=== PATIENT | male | born 1970 | race Caucasian/White ===

== ENCOUNTER 2020-02-05 14:21 | Inpatient (IN) | payer OTHER ==
[~2020-02-05] VITALS: Ht 152.4 cm; Wt 131.2 kg
[2020-02-05 14:22] VITALS: BP 123/56
[2020-02-05] MEDS ORDERED: ZESTRIL5 MG PO (14:32)
[2020-02-05] MEDS ORDERED: AMANTADINE 100100 M1 PO (14:32)
[2020-02-05] MEDS ORDERED: POTASSIUM20 PO (14:32)
[2020-02-05] MEDS ORDERED: OMEPRAZOLE40 MG PO (14:32)
[2020-02-05] MEDS ORDERED: MULTI COMPLETE1 EAC1 PO (14:33)
[2020-02-05] MEDS ORDERED: SPIRIVA18 MCG INH (14:33)
[2020-02-05] MEDS ORDERED: FAMOTIDINE20 MG PO (14:34)
[2020-02-05] MEDS ORDERED: DULOXETINE HCL60 MG PO (14:34)
[2020-02-05] MEDS ORDERED: DEPAKOTE500 MG PO (14:34)
[2020-02-05] MEDS ORDERED: FUROSEMIDE 40 M40 MG PO (14:34)
[2020-02-05] MEDS ORDERED: MIRALAX17 GM PO (14:35)
[2020-02-05] MEDS ORDERED: GABAPENTIN100 MG PO (14:35)
[2020-02-05] MEDS ORDERED: METFORMIN HCL850 MG PO (14:35)
[2020-02-05 14:56] LABS: HEMATOCRIT 38.9 % (42.0-52.0); MCHC 33.4 g/dL (28.0-37.0); MCV 89.9 fL (80.0-100.0); PLATELET COUNT 130 thou/uL (150-400); RBC 4.33 mil/uL (4.50-6.00); RDW 16.8 % (10.5-14.5); WBC 4.9 thou/uL (4.0-11.0)
[2020-02-05 15:07] LABS: CALCIUM 8.5 mg/dL (8.5-10.1); CREATININE 1.1 mg/dL (0.7-1.3)
[2020-02-05 15:09] LABS: POTASSIUM 2.9 mmol/L (3.5-5.1)
[2020-02-05 15:13] LABS: ALBUMIN 3.3 g/dL (3.4-5.0); TOTAL BILIRUBIN 0.6 mg/dL (0.2-1.0)
[2020-02-05] MEDS ORDERED: STOOL SOFTENER1 EAC2 PO (15:18)
[2020-02-05] MEDS ORDERED: ASA81BEC PO (15:18)
[2020-02-05] MEDS ORDERED: BUSPIRONE HCL10 MG PO (15:18)
[2020-02-05] MEDS ORDERED: MEDROXYPROGESTER5 MG PO (15:18)
[2020-02-05] MEDS ORDERED: OLANZAPINE20 MG PO (15:19)
[2020-02-05] MEDS ORDERED: AMBIEN 5 MG TABL5 M1 PO (15:19)
[2020-02-05] MEDS ORDERED: DEPAKOTE250 MG PO (15:19)
[2020-02-05] MEDS ORDERED: LIPITOR 40 MG T40 M1 PO (15:19)
[2020-02-05] MEDS ORDERED: BANOPHEN50 MG PO (15:20)
[2020-02-05] MEDS ORDERED: SOMA350 MG PO (15:20)
[2020-02-05] MEDS ORDERED: VOLTAREN GEL 1100 G1 TOP (15:21)
[2020-02-05] MEDS ORDERED: TIROSINT150 MCG PO (15:21)
[2020-02-05] MEDS ORDERED: NOVOLOG100 UNIT/M SUBQ (15:22)
[2020-02-05] MEDS ORDERED: LANTUS SUBQ ×2 (15:22)
--- NOTE | 2020-02-05 15:24 | NUR ---
EMILY ADORNO, GUARDIAN, CONTACTED AT THIS TIME. NO ANSWER ON PHONE. MESSAGE IS LEFT TO CALL ER BACK.
[2020-02-05 15:43] LABS: ANISOCYTOSIS 2+; ATYPICAL LYMPHS 1 %; LARGE PLATELETS RARE
[2020-02-05 16:39] VITALS: BP 144/70
[2020-02-05 17:09] LABS: URINE BILIRUBIN NEGATIVE (Negative); URINE BLOOD NEGATIVE (Negative); URINE CLARITY CLEAR; URINE COLOR YELLOW; URINE GLUCOSE-RANDOM* 1+ (Negative); URINE KETONES NEGATIVE (Negative); URINE LEUKOCYTES-REFLEX NEGATIVE (Negative); URINE NITRITE-REFLEX NEGATIVE (Negative); URINE PROTEIN (DIPSTICK) NEGATIVE (Negative); URINE SPECIFIC GRAVITY >= 1.030 (1.005-1.035); URINE UROBILINOGEN 0.2 E.U./dl (0.2-1.0)
[2020-02-05 17:17] LABS: AMP/METHAMP Negative (Negative); BARBITURATES Negative (Negative); BENZODIAZEPINES Negative (Negative); COCAINE Negative (Negative); METHADONE Negative (Negative); OPIATES Negative (Negative); PCP Negative (Negative)
[2020-02-05 17:25] VITALS: BP 141/82
[2020-02-05 18:25] LABS: ALBUMIN 3.3 g/dL (3.4-5.0); TOTAL PROTEIN 8.1 g/dL (6.4-8.2)
[2020-02-05 18:26] VITALS: BP 128/55
[2020-02-05] MEDS ORDERED: TRAZODONE HCL50 MG PO (18:28)
[2020-02-05] MEDS ORDERED: LACTULOSE PO (18:30)
[2020-02-05 18:39] LABS: TSH 3.86 uIU/mL (0.358-3.740)
[2020-02-05 19:41] VITALS: BP 105/54
--- NOTE | 2020-02-05 20:00 | NUR ---
PATIENT ARRIVED TO UNIT AT APPROXIMATELY 1800. ALERT AND ORIENTED TO PERSON PLACE AND SITUATION. ON 2LNC AND O2 SAT STABLE. NO DISTRESS NOTED UPON ARRIVAL TO UNIT. CALL LIGHT WITHIN REACH, SIDE RAILS UPX3. INSTRUCTED PATIENT ON USE OF CALL LIGHT AND ORIENTED PATIENT TO ROOM. STATES UNDERSTANDING. VSS.
--- NOTE | 2020-02-05 23:37 | NUR ---
PT RESTING IN BED. GOOD EYE CONTACT, MUMBLED SPEECH. PT ABLE TO TURN SELF IN BED, AND PULL SELF UP IN BED. LUNGS COARSE O2 PER NC 2L, LOOSE COUGH. PT REQUESTED SNACK AND PROVIDED. PT OX3 NOT TIME. CHILDLIKE. BLE REDDENED AND EDEMA. ALARM ON.
[2020-02-06 04:40] VITALS: BP 115/54
--- NOTE | 2020-02-06 06:55 | NUR ---
KAVITHA NASAL SWAB DONE THIS AM.
[2020-02-06 07:56] VITALS: BP 95/49
--- NOTE | 2020-02-06 10:47 | EKG ---
[facility] [place] [address] ELECTROCARDIOGRAM REPORT Name: PAT ROMERO Room #: 352-P ADM IN M.R.#: [id number] Admission: 02/05/20 Attend Phys: Leonel Rincon MD Discharge: Date of : 70 Report #: [id number] THIS REPORT FOR: cc: Minh Zhou,Minh Sparrow,Nikita Boswell MD ~ THIS REPORT FOR: //name// [facility] ED Test Date: 2020-02-05 Test Time: 16:04:03 Pat Name: PAT ROMERO Department: Patient ID: [id number]- Room: Gender: M Deployment Manager: : 1970 Requested By: Jessica Millan Order Number: [id number] MD: Nikita Agee Measurements Intervals [place] Rate: 102 P: 35 [place]: 74 QRS: 75 QRSD: 103 T: -55 QT: 322 QTc: 420 Interpretive Statements Sinus tachycardia RSR' in V1 or V2, right VCD or RVH Nonspecific T abnormalities, diffuse leads Baseline wander in lead(s) I,II,aVR No previous ECG available for comparison Electronically Signed On 02-06-2020 10:47:29 CDT by Nikita Agee [email or web address] <ELECTRONICALLY SIGNED> By: Nikita Agee MD 02/06/20 1047 1604 1604 Nikita Agee MD /EPI
--- NOTE | 2020-02-06 13:13 | NUR ---
INITIAL ASSESSMENT: DANIELE reviewed chart and spoke with nursing. Pt was admitted from [facility] due to fevers. Pt with hx bipolar disorder/TBI. Per chart, pt did test positive at [facility]. Pt is a [place] of the state and has a legal guardian through the [facility] [employer]'s office ( After Hours: [phone] ). DANIELE spoke with the PA office, who is aware of pt's hospital admission. Plan is for pt to return to [facility] when medically stable. DANIELE faxed clinical info to the PA office for review. Requested copy of guardianship ppwk to be faxed to DANIELE to place on chart. Pt's mother, Naima ([phone]) is able to be given status updates. DANIELE notified pt's nurse that all consents must go through the PA office. DANIELE faxed clinical info to [facility] and left voice message for RANDY Leyva. DANIELE is following to assist as needed with discharge planning.
--- NOTE | 2020-02-06 15:04 | NUR ---
ASSUMED CARE OF PT AT 0700. PT AOX1 IN NO ACUTE DISTRESS. PLEASANTLY CONFUSED. MUMBLING MOST OF SENTENCES. ON 2L NC. FREQUENT COUGHING FITS. CALLS OUT FREQUENTLY FOR VARIOUS NEEDS. USING URINAL. GOOD APPETITE. RLE WOUND SWABBED AND SENT TO LAB. SR ON TELEMETRY. REPORT GIVEN TO ONCOMING RN.
[2020-02-06 17:00] VITALS: BP 100/50
[2020-02-06 19:38] VITALS: BP 112/54
[2020-02-07 03:39] VITALS: BP 133/68
--- NOTE | 2020-02-07 05:55 | NUR ---
ASSUMED PT CARE AROUND 1930. AXOX1. FOLLOW VERVAL COMMANDS MAJORITY OF TIMES. VSS. PUBLIC EXTENSION SERVICE SPECIALIST NOT AVAILABLE DURING THIS SHIFT TO CONSENT FOR CONVALESCENT PLASMA. WILL ENDORSE FOR FOLLOW UP. NO S/S ACUE DISTRESS NOTED OR REPORTED AT THIS TIME. WILL CONT TO MONITOR FOR ANY CHANGES IN CONDITION.
[2020-02-07 06:06] LABS: ABSOLUTE NEUTROPHILS 4.8 thou/uL (1.4-8.2); BASOPHILS 0.4 % (0.0-2.0); D-DIMER 0.19 ug/mLFEU (0.19-0.50); HEMATOCRIT 32.2 % (42.0-52.0); MCH 30.2 pg (26.0-34.0); MCHC 33.9 g/dL (28.0-37.0); MCV 89.1 fL (80.0-100.0); MONOCYTES 8.9 % (1.0-8.0); PLATELET COUNT 110 thou/uL (150-400); POLYS 79.7 % (36.0-66.0); PROTIME 10.7 Seconds (9.3-11.4); RBC 3.62 mil/uL (4.50-6.00); RDW 17.2 % (10.5-14.5)
[2020-02-07 06:20] LABS: HEMOGLOBIN 10.9 gm/dL (14.0-18.0)
[2020-02-07 07:05] LABS: ALBUMIN 2.6 g/dL (3.4-5.0); CALCIUM 8.4 mg/dL (8.5-10.1); POTASSIUM 3.6 mmol/L (3.5-5.1); TOTAL BILIRUBIN 0.4 mg/dL (0.2-1.0); TOTAL PROTEIN 6.8 g/dL (6.4-8.2)
[2020-02-07 07:21] LABS: DIRECT BILIRUBIN 0.1 mg/dL (<0.1-0.2)
[2020-02-07 07:30] VITALS: BP 116/58
[2020-02-07 07:43] VITALS: BP 106/54
--- NOTE | 2020-02-07 11:08 | NUR ---
Nutrition: Assessed due to consult for admit screening from [facility]? Here w/ sepsis, COVID+, pneumonia, cellulitis R lower extremity. Hx includes TBI, bipolar disorder, DM II, CHF. Due to hx TBI, pt noted to be a poor historian per EMR, described as childlike, pleasantly confused, and mumbled speech. Nursing reports good appetite from yesterday, now currently NPO. Previously on 1800 kcal carb controlled, heart healthy diet. Fasting BG today 338 mg/dl. Do note pt on IV Solu Medrol, so BGs likely to be exacerbated. On Lantus BID and Humalog SSI. No active nutrition concerns, but due to skin/wounds noted in various stages of healing (L heel, R heel, R skin wounds), will add Ensure MAX supplement 1x daily once diet resumes. This limits CHOs to only 6g/serving, but maximizes protein to 30g/serving. Low nutrition risk otherwise w/ good appetite and high protein supplement added.
[2020-02-07 11:30] VITALS: BP 107/52
--- NOTE | 2020-02-07 13:55 | NUR ---
SW reviewed chart and spoke with nursing and attending physician. Pt remains in Enhanced Isolation due to COVID-19. Pt is on IV abx and 6L of continuous O2. Nursing to obtain consent from pt's legal guardian ([facility] [employer]) for convalescent plasma. Plan is for pt to return to [facility] when medically stable. DANIELE is following to assist as needed with discharge planning.
[2020-02-07 15:41] VITALS: BP 113/53
--- NOTE | 2020-02-07 18:26 | NUR ---
VASCULAR ACCESS CONSULTED FOR ML PLACEMENT. DISCUSSED BENEFITS AND RISK OF ML WITH PT, VERBALIZED UNDERSTANDING. PT AGREES TO HAVE ML PLACED. YOMAIRA BASILIC WAS WIDELY PATENT WITH USG. 4FR POWER MIDLINE TRIMMED TO 13CM INSERTED TO 0CM WITH BRISK BR. ML RELEASED FOR IMMEDIATE USE TO ANIKA PERDOMO
[2020-02-07 19:32] VITALS: BP 121/48
--- NOTE | 2020-02-07 20:07 | NUR ---
PT IS EXTREMELY FORGETFUL/CONFUSED...HE CONSTANTLY CALLS DESK AND APPEARS VERY ANXIOUS...NEED FREQ REMINDERS TO KEEP O2 IN PLACE...FREQ ROUNDS..
--- NOTE | 2020-02-07 21:14 | NUR ---
consent for plasma obtained by day nurse, Dr. Yen notified of need for his order and pt blood type noted to b a positive.
[2020-02-08] VITALS (25 sets, daily range): BP systolic 95–154; BP diastolic 45–75
--- NOTE | 2020-02-08 07:33 | NUR ---
progress pt cooperative for most of shift behaved a little aggressive with the tech this am but stopped when i asked him to be nice calling for urinal upset we have briefs instead of diapers, convalescent plasma given as ordered no s/s of reaction noted. pt has a frequent wet sounding cough and lung sounds are coarse, pt accuchecks and ssi continue 20 units humalog given for 366 last night and long acting lantus 22 units given as well pt allowed to eat a pudding last night and one this morning able to feed self after set up. denies pain continue poc.
[2020-02-08 08:28] LABS: BE(vivo) -1.6 mmol/L (-2 to +3); HCO3 21.8 mmol/L (22.0-26.0); PCO2 32.6 mmHg (35.0-45.0); pH 7.443 (7.360-7.450); sO2 90.6 % (92.0-98.0)
--- NOTE | 2020-02-08 10:34 | HC ---
[facility] [place] [address] [place] [address] CONSULTATION Name: PAT ROMERO Room #: 352-P ADM IN M.R.#: [id number] Admission: 02/05/20 Attend Phys: Leonel Rincon MD Discharge: Date of : 70 Report #: [id number] THIS REPORT FOR: cc: Minh Zhou,Gilbert Garcia MD ~ CC: Minh Rincon DATE OF SERVICE: 02/06/2020 WOUND CARE CONSULTATION PERSONAL PHYSICIAN: Dr. Minh Zhou CHIEF COMPLAINT: Bilateral heel ulcers and right lower extremity ulcer. HISTORY OF PRESENT ILLNESS: This is a 49-year-old white male with a history of a traumatic brain injury, type 2 diabetes, who was recently tested positive for COVID-19 in the facility that he lives in. He was noted to be having increasing shortness of breath which prompted them to bring him to the Emergency Department. The patient was admitted for acute dyspnea secondary to the COVID-19. Upon admission, he was noted to have the right lower extremity open ulcer with surrounding cellulitis as well as the patient was complaining of bilateral heel pain. The patient denies any other associated wounds. The patient himself is a fairly poor historian secondary to the traumatic brain injury. Nursing staff have no other associated wounds care concerns. PAST MEDICAL HISTORY: Significant for recent COVID-19 positive testing, diabetes mellitus type 2, gastroesophageal reflux disease, bipolar disease, traumatic brain injury, congestive heart failure, seizures, anxiety, asthma. CURRENT MEDICATIONS: Multiple, I reviewed the patient's medication list. DRUG ALLERGIES: Include TRAMADOL, ACETAMINOPHEN. SOCIAL HISTORY: The patient states he has never smoked. Does not drink alcohol. Lives in a care facility at this time. FAMILY HISTORY: Not pertinent to current medical condition. REVIEW OF SYSTEMS: CONSTITUTIONAL: The patient denies fevers or chills. NEUROLOGIC: The patient complains of overall generalized weakness, but no isolated weakness in arms or legs. EYES: No complaints. [address] [address] CONSULTATION Name: PAT ROMERO Room #: 352-P [facility] IN M.R.#: [id number] Admission: 02/05/20 Attend Phys: Leonel Rincon MD Discharge: Date of : 70 Report #: [id number] ENT: No complaints. CARDIAC: The patient has mild chronic edema in lower extremities, but no chest pain or palpitation. RESPIRATORY: The patient complains of shortness of breath with associated dyspnea on exertion and dry cough, occasional scattered wheeze. GASTROINTESTINAL: The patient denies nausea, vomiting or abdominal pain. GENITOURINARY: The patient denies urgency or frequency. MUSCULOSKELETAL: No complaints. SKIN: The patient has open ulcer on his right pretibial region as well as deep tissue injuries to bilateral heels. PHYSICAL EXAMINATION: VITAL SIGNS: Temperature 36.8, pulse 89, respirations 16, BP 106/54. GENERAL: This is an alert and oriented x 1 person, but not place or time, white male who is in mild distress secondary to symptoms. HEENT: Normocephalic, atraumatic. Mucous membranes are dry. Pupils are round. Sclerae white. NECK: Without JVD. LUNGS: Diminished breath sounds heard throughout with scattered wheezes. HEART: Regular. ABDOMEN: Soft, nontender. EXTREMITIES: Have 1-2+ edema bilaterally with distal pulses 1+. Right pretibial region has an open ulceration which is clean and granulating with increased erythema, warmth and tenderness surrounding this area. There is no significant undermining or tunneling. Bilateral heels are boggy and tender to palpation with slight ecchymosis. There are no open ulcerations. NEUROLOGIC: Cranial nerves 2-12 grossly intact. Motor and sensory grossly intact. LABORATORY VALUES: White count 4.9, hemoglobin 13.0. COVID-19 is positive. BUN 21, creatinine 1.0, albumin 2.6. Chest x-ray shows patchy bibasilar infiltrates. IMPRESSION: 1. Venous leg ulcer, right ng, right pretibial region, limited to breakdown of subcutaneous tissue with surrounding cellulitis. 2. Deep tissue injury, bilateral heels. 3. Diabetes mellitus type 2. 4. Congestive heart failure. 5. COVID-19 positive. 6. Mild protein-calorie malnutrition, albumin of 3.3. 7. Generalized debility. PLAN: We will place a bordered foam over the right pretibial ulceration daily and p.r.n. Infectious Disease is managing IV antibiotics at this time. I will use heel protectors at all times for offloading his heels. Pulmonary is [address] [address] CONSULTATION Name: PAT ROMERO Room #: 352-P ADM IN M.R.#: [id number] Admission: 02/05/20 Attend Phys: Leonel Rincon MD Discharge: Date of : 70 Report #: [id number] managing and he is COVID-19 positive. I will make sure we maximize the patient's oral protein supplementation for healing. We will utilize physical and occupational therapy if the patient is able to tolerate. We will continue all other medications. Case was reviewed with Dr. Rincon, hospitalist. <ELECTRONICALLY SIGNED> By: Gilbert Elizabeth MD 02/08/20 1034 [id number] [id number] Gilbert Elizabeth MD /nt
--- NOTE | 2020-02-08 15:19 | NUR ---
DANIELE reviewed chart and spoke with nursing and attending physician. Pt in Enhanced Isolation due to COVID-19. Pt is afebrile. On 7L of continuous O2. IV abx and IV steroids. DANIELE received call from Crystal at [facility] [employer]'s office this morning to request update. DANIELE faxed updated clinical info to [place] office for review. DANIELE also faxed updates to [facility]. Plan is for pt to return to [facility] when medically stable. DANIELE is following to assist as needed with discharge planning.
--- NOTE | 2020-02-08 20:10 | NUR ---
ASSUMED CARE APPROX 0700. PT ALERT AND ORIENTED X4. ASSESSMENTS CHARTED. PT HYPOXIC AND TACHYPNEIC THIS AM ON 7LNC. PT REQUIRED MORE O2 AND PLACED ON HIGH FLOW NC AT 15LNC. PT'S SATS WERE STILL IN THE 80'S. RT CONTACTED AND PT PLACED ON BIPAP. SATS 90-92%. PT TOOK BIPAP MASK OFF FREQUENTLY. DR. BAIG AND DR. AGUIRRE NOTIFIED. CXR ORDERED. PT SENT TO ICU FOR INTUBATION.
--- NOTE | 2020-02-08 20:15 | NUR ---
VAT CONSULTED FOR A STAT LINE ON THIS PT WHO WAS INTUBATED DUE TO COVID 19, LINE IS MEDICALLY NECESSARY HE IS [place] OF THE STATE. PT HAD BLOOD IN HIS VENT TUBING PRIOR TO ATTEMPTING HIS LINE, PT HAD A COUGHING SPELL WITH POSS FLASH PULM EDEMA DURING THE LINE PLACEMENT MAKING IT VERY DIFFICULT TO ACCESS HIM. AFTER HE SETTLED THE RT IJ TL WAS ADVANCED AND IT WOULD NOT TERMINATE APPROPRIATELY IN THE CAJ, ATTEMPT MADE IN THE LT IJ AND THE LINE ADVANCED APPROPRIATELY. CXR CALLED FOR CONFIRMATION.
--- NOTE | 2020-02-08 20:43 | NUR ---
TRANSFERRED FROM 3W TO ICU ON BIPAP, VERY ANXIOUS AGITATED AND COMBATIVE. DR. AGUIRRE AT BEDSIDE. MEDICATION ADMINISTERED PER DR. AGUIRRE AND PATIENT INTUBATED. ARNOLD PLACED AND OGT PLACED. PROPOFOL STARTED FOR SEDATION. IV ACCESS TEAM HERE TO PLACE CENTRAL LINE. REPORT GIVEN TO CONOR FOREMAN
--- NOTE | 2020-02-08 21:03 | NUR ---
CXR REVEALS THE TIP OF THE LT TL IJ AT THE CAJ AND IN GOOD POSITION, THE RT IJ CURLED BACK UP THE RT IJ. RT IJ REMOVED INTACT.
[2020-02-09] VITALS (64 sets, daily range): BP systolic 74–140; BP diastolic 30–75
[2020-02-09 06:41] LABS: ABSOLUTE NEUTROPHILS 5.1 thou/uL (1.4-8.2); BASOPHILS 0.2 % (0.0-2.0); HEMATOCRIT 31.3 % (42.0-52.0); HEMOGLOBIN 10.6 gm/dL (14.0-18.0); LYMPHOCYTES 10.3 % (24.0-44.0); MCH 30.5 pg (26.0-34.0); MCHC 33.9 g/dL (28.0-37.0); MCV 90.1 fL (80.0-100.0); MONOCYTES 8.8 % (1.0-8.0); PLATELET COUNT 143 thou/uL (150-400); POLYS 80.7 % (36.0-66.0); RBC 3.47 mil/uL (4.50-6.00); RDW 16.8 % (10.5-14.5); WBC 6.3 thou/uL (4.0-11.0)
[2020-02-09 06:56] LABS: ALBUMIN 2.8 g/dL (3.4-5.0); CALCIUM 8.1 mg/dL (8.5-10.1); CREATININE 0.9 mg/dL (0.7-1.3); POTASSIUM 4.1 mmol/L (3.5-5.1); TOTAL BILIRUBIN 0.6 mg/dL (0.2-1.0); TOTAL PROTEIN 6.2 g/dL (6.4-8.2)
--- NOTE | 2020-02-09 07:16 | NUR ---
PATIENT TRANSFER TO ICU D/T DECLINE IN RESP. STATUS, AGRESSIVE/COMBATIVE BEHAVIOR. WAS INTUBATED 02/07. WILL NEED NEW ORDERS WHEN APPROPRIATE FOR OT.
--- NOTE | 2020-02-09 07:32 | NUR ---
PT REMAINS ON THE VENT 100% FIO2. PT PROPOFOL FOR VENT COMFORT. PT HAS NEEDED YOMAIRA SINGLE LUMEN AND LEFT IJ TRIPLE REINFORCED DUE TO BLEEDING FROM SITE. PT URINE WENT FROM YELLOW TO PINK TINGED DURING SHIFT. PT WITH LOW GRADE TEMP ROOM COOLED DOWN.
--- NOTE | 2020-02-09 07:57 | NUR ---
Pt TRANSFERRED TO ICU DUE TO DECLINE IN CONDITION. WILL PLACE ON HOLD AND AWAIT NEW ORDERS TO RESUME WHEN APPROPRIATE
[2020-02-09 08:49] LABS: BE(vivo) -0.6 mmol/L (-2 to +3); HCO3 23.9 mmol/L (22.0-26.0); PCO2 38.8 mmHg (35.0-45.0); PO2 110.6 mmHg (80.0-100.0); pH 7.407 (7.360-7.450); sO2 98.1 % (92.0-98.0)
--- NOTE | 2020-02-09 11:49 | NUR ---
Nutrition reassessment: transferred to ICU and now intubated
--- NOTE | 2020-02-09 11:56 | NUR ---
If pt requires intubation >48 hr, recommend start enteral nutrition of vital high protein at 25ml/hr to start. Will continue to follow
--- NOTE | 2020-02-09 14:00 | NUR ---
PT TURNED TO LEFT, LARGE HEMATOMA NOTED ON RIGHT SIDE NECK. CIRCLED SHADOWING, PANDAY PAGED, ORDERS RECIEVED.
--- NOTE | 2020-02-09 14:09 | NUR ---
GENEVA FROM [facility] CALLED FOR UPDATE. ASKED THAT IF ANY CHANGES IN CONDITION TO PLEASE CALL, USING EMERGENCY # EVEN IF IT IS DURING BUSINESS HOURS. [phone].--VW
[2020-02-09 16:36] LABS: HEMATOCRIT 27.3 % (42.0-52.0); HEMOGLOBIN 9.4 gm/dL (14.0-18.0); MCH 30.6 pg (26.0-34.0); MCHC 34.4 g/dL (28.0-37.0); RBC 3.07 mil/uL (4.50-6.00); RDW 16.5 % (10.5-14.5); WBC 5.1 thou/uL (4.0-11.0)
--- NOTE | 2020-02-09 18:30 | NUR ---
LEVO STARTED FOR BP, PT IMMEDIATELY FLIPPED INTO AFIV/RVR LEVO TURNED OFF, SAFIA PAGED, ORDERS RECIEVED-CONSULT CARDIOLOGY, GIVE NS BOLUS.
[2020-02-09 23:21] LABS: HEMATOCRIT 24.3 % (42.0-52.0); HEMOGLOBIN 8.1 gm/dL (14.0-18.0)
[2020-02-10] VITALS (93 sets, daily range): BP systolic 78–143; BP diastolic 33–97
[2020-02-10 04:37] LABS: BE(vivo) -3.2 mmol/L (-2 to +3); PCO2 46.7 mmHg (35.0-45.0); sO2 94.7 % (92.0-98.0)
[2020-02-10 06:41] LABS: HEMATOCRIT 25.7 % (42.0-52.0); HEMOGLOBIN 8.4 gm/dL (14.0-18.0); MCHC 32.8 g/dL (28.0-37.0); MCV 91.5 fL (80.0-100.0); PLATELET COUNT 125 thou/uL (150-400); RBC 2.81 mil/uL (4.50-6.00); RDW 16.6 % (10.5-14.5); WBC 6.2 thou/uL (4.0-11.0)
--- NOTE | 2020-02-10 08:10 | NUR ---
Once ready to start enteral nutrition, recommend vital high protein at 25ml/hr and progress to goal 65ml/hr. Defer any fluid needs to physician
--- NOTE | 2020-02-10 08:53 | NUR ---
PT HYPOTENSIVE AT NIGHT WITH AMOIDARONE GTT, PT NOT TOLERATIING LEVOPHED, GOES INTO AFIB RVR WITH VERY MINIMAL DOSE. FLUID BOLUSES GIVEN AND PHENYLEPHRINE STARTED THIS AM , PER PROGRAM MANAGER Mechelle MARTINEZ. SIGNIFICANT HEMATOMA ON RIGHT NECK, AND SWELLING NOTED TO BE SPREADING ON THE WHOLE RIGHT SIDE OF FACE. OOZING BLOOD FROM LEFT JUGULAR PICC SITE, PRESSURE DRESSING REINFORCED TO BOTH AREAS THROUGHOUT THE NIGHT, HGB ABOVE 8 LAST NIGHT AND 8.4 THIS AM. ALSO OCCASOINALLY SUCTIONING OUT BLOOD TINGED SECRETIONS FROM ET TUBE.
[2020-02-10 12:41] LABS: ALBUMIN 2.4 g/dL (3.4-5.0); CALCIUM 7.3 mg/dL (8.5-10.1); POTASSIUM 3.7 mmol/L (3.5-5.1); TOTAL BILIRUBIN 0.4 mg/dL (0.2-1.0); TOTAL PROTEIN 5.3 g/dL (6.4-8.2)
--- NOTE | 2020-02-10 13:07 | NUR ---
public admin paper placed on pt chart per cm team. pt remains intubated with tube feed nutritional support. consulted cardiology. no anticipated dc through weekend. will cont following as needed for dc needs. pt resident at [facility].
[2020-02-10 14:43] LABS: ABSOLUTE NEUTROPHILS 4.9 thou/uL (1.4-8.2); ANISOCYTOSIS 1+
[2020-02-10 15:33] LABS: BE(vivo) -5.3 mmol/L (-2 to +3); HCO3 22.6 mmol/L (22.0-26.0); PCO2 56.2 mmHg (35.0-45.0); sO2 79.1 % (92.0-98.0)
[2020-02-10 15:34] LABS: PO2 51.7 mmHg (80.0-100.0); pH 7.223 (7.360-7.450)
[2020-02-10 17:44] LABS: BE(vivo) -5.4 mmol/L (-2 to +3); HCO3 24.4 mmol/L (22.0-26.0); PCO2 72.8 mmHg (35.0-45.0); PO2 55.1 mmHg (80.0-100.0); pH 7.144 (7.360-7.450); sO2 77.9 % (92.0-98.0)
--- NOTE | 2020-02-10 19:40 | NUR ---
0800 PT IN AFIB/RVR-SEE ORDERS/MEDS GIVEN, SPOKE WITH GUARDIAN-WISHES TO MAKE PT DNR STATUS. 1400 INCREASED RR- PAGED TIMOTHY FOR ADDITIONAL SEDATION MEDS 1600 PT CONVERTED TO SINUS, REMAINS ON LILIA SYN-BP STABLE WITH LILIA
[2020-02-10 20:37] LABS: HEMATOCRIT 30.4 % (42.0-52.0); HEMOGLOBIN 10.1 gm/dL (14.0-18.0)
[2020-02-11] VITALS (89 sets, daily range): BP systolic 103–134; BP diastolic 53–72
[2020-02-11 04:57] LABS: ABSOLUTE NEUTROPHILS 7.2 thou/uL (1.4-8.2); BASOPHILS 0.2 % (0.0-2.0); HEMATOCRIT 27.9 % (42.0-52.0); HEMOGLOBIN 9.1 gm/dL (14.0-18.0); LYMPHOCYTES 3.7 % (24.0-44.0); MCHC 32.5 g/dL (28.0-37.0); MCV 92.2 fL (80.0-100.0); MONOCYTES 5.9 % (1.0-8.0); PLATELET COUNT 165 thou/uL (150-400); POLYS 90.2 % (36.0-66.0); RBC 3.03 mil/uL (4.50-6.00)
[2020-02-11 05:09] LABS: BE(vivo) -4.6 mmol/L (-2 to +3); PCO2 47.7 mmHg (35.0-45.0); PO2 131.9 mmHg (80.0-100.0); sO2 98.3 % (92.0-98.0)
[2020-02-11 05:10] LABS: pH 7.282 (7.360-7.450)
[2020-02-11 05:12] LABS: ALBUMIN 2.3 g/dL (3.4-5.0); CALCIUM 7.9 mg/dL (8.5-10.1); CREATININE 1.1 mg/dL (0.7-1.3); POTASSIUM 4.6 mmol/L (3.5-5.1); TOTAL BILIRUBIN 0.7 mg/dL (0.2-1.0); TOTAL PROTEIN 6.3 g/dL (6.4-8.2)
--- NOTE | 2020-02-11 18:40 | NUR ---
ASSUMED CARE @ 0700, PT ASSESSMENTS AND VSS COMPLETE PER ICU PROTOCOL. PT ENCOUNTERED ON VERSED, PRECEDEX GTT IN PLACE FOR VENT MANAGEMENT. NO SEDATION VACATION DONE TODAY, PT NOT ABLE TO TOLERATE. PT ABLE TO TOLERATE FIO2 IN 60'S , 02 SATS IN THE 90'S. PT STILL ON LILIA GTT FOR MAP GREATER THAN 60 AND AMIO GTT PER CARDIOLOGY. PT PARENTS CALLED FOR AN UPDATE RN UNABLE TO GIVE UPDATE DUE TO THE FACT THEIR NAME ARE NOT ON THE AUTHORIZED CONTACT LIST.
[2020-02-12] VITALS (15 sets, daily range): BP systolic 117–156; BP diastolic 54–75
[2020-02-12 04:34] LABS: HCO3 23.2 mmol/L (22.0-26.0); PO2 69.1 mmHg (80.0-100.0); sO2 93.4 % (92.0-98.0)
[2020-02-12 06:00] LABS: ABSOLUTE NEUTROPHILS 4.4 thou/uL (1.4-8.2); BASOPHILS 0.1 % (0.0-2.0); HEMATOCRIT 24.3 % (42.0-52.0); HEMOGLOBIN 7.9 gm/dL (14.0-18.0); LYMPHOCYTES 4.8 % (24.0-44.0); MCH 29.8 pg (26.0-34.0); MCHC 32.4 g/dL (28.0-37.0); MCV 91.9 fL (80.0-100.0); MONOCYTES 9.3 % (1.0-8.0); PLATELET COUNT 139 thou/uL (150-400); POLYS 85.8 % (36.0-66.0); RBC 2.65 mil/uL (4.50-6.00); RDW 17.2 % (10.5-14.5); WBC 5.2 thou/uL (4.0-11.0)
[2020-02-12 06:07] LABS: CALCIUM 8.5 mg/dL (8.5-10.1); CREATININE 1.1 mg/dL (0.7-1.3); POTASSIUM 4.6 mmol/L (3.5-5.1); TOTAL BILIRUBIN 0.5 mg/dL (0.2-1.0); TOTAL PROTEIN 6.2 g/dL (6.4-8.2)
[2020-02-12 14:55] LABS: HEMATOCRIT 22.3 % (42.0-52.0); HEMOGLOBIN 7.5 gm/dL (14.0-18.0)
--- NOTE | 2020-02-12 19:42 | NUR ---
ASSUMED CARE @ 0700 02/12/20, PT ASSESSMENTS AND VSS COMPLETE PER ICU PROTOCOL. PT ON VERSED AND PRECEDEX FOR VENT MANAGEMENT. SEDATION VACATION DONE TODAY, PT NOT FOLLOWING COMMANDS. PT IN SR FOR A COUPLE OF DAYS, THIS WAS COMMUNICATED TO DR HESTER, PT AMIO SWITCHED TO PO. MAP ABOVE 60 WITHOUT ANY BP SUPPORT MEDICATION. PT ABLE TO TOLERATE @ 40% THE MOST OF THE SHIFT BUT HAD TO BE INCREASED TO 50% D/T 02 SATING IN THE HIGH 80'S. WILL CONT TO MONITOR.
[2020-02-13] VITALS (23 sets, daily range): BP systolic 117–176; BP diastolic 51–78
[2020-02-13 05:46] LABS: ABSOLUTE NEUTROPHILS 3.9 thou/uL (1.4-8.2); BASOPHILS 0.3 % (0.0-2.0); HEMATOCRIT 23.7 % (42.0-52.0); HEMOGLOBIN 7.7 gm/dL (14.0-18.0); LYMPHOCYTES 4.9 % (24.0-44.0); MCHC 32.5 g/dL (28.0-37.0); MCV 92.3 fL (80.0-100.0); MONOCYTES 8.3 % (1.0-8.0); PLATELET COUNT 139 thou/uL (150-400); POLYS 86.5 % (36.0-66.0); RBC 2.57 mil/uL (4.50-6.00); RDW 17.7 % (10.5-14.5); WBC 4.8 thou/uL (4.0-11.0)
--- NOTE | 2020-02-13 08:49 | NUR ---
SEDATED.ON VERSED AND PRECEDEX GTT.OGT,ETT,ARTLINE,ARNOLD INTACT.VITAL HP AT 60 ML/HR INFUSING.POC CONTINUED.
--- NOTE | 2020-02-13 10:50 | NUR ---
Nutrition: Vital HP at 65 ML/hr goal rate appropriate to meet needs. Current hypernatremia. No IVFs or water flushes. Edema present. If physician deems appropriate rec 100 mL H20 flush TID.
--- NOTE | 2020-02-13 13:57 | NUR ---
chart review. unable to visit with pt rt still intubated, tube feeding for nutritional support. wound care, iv gtts and in afib/rvr. cm team update to [facility]. will cont following as needed for dc needs.
--- NOTE | 2020-02-13 16:20 | NUR ---
FAXED CLINICAL UPDATE TO [facility] RECEIVED CONFIRMATION AND LEFT MSG WITH SOMMER AGUIRRE). DP TO FOLLOW.
--- NOTE | 2020-02-13 23:04 | NUR ---
02/12: ASSUMED CARE OF PT AT 0645. NO CPAP. PT RESTLESS ON SEDATION CARLOS. SPOKE WITH LEGAL GAURDIAN, GAVE PRIVACY CODE. LEGAL GAURDIAN GAVE CODE TO FAMILY MEMBERS SO THEY COULD GET UPDATES. SPOKE WITH PT'S PARENTS AND SISTER, UPDATED THEM ON MEDS, VENT, AND PT STATUS. SISTER STATES THAT PT IS USUALY AOX4, HAS WHISPERY VOICE AND SLURS BUT ABLE TO CONVERSE PRIOR TO HOSPITALIZATION.
[2020-02-14] VITALS (24 sets, daily range): BP systolic 122–214; BP diastolic 51–114
--- NOTE | 2020-02-14 00:45 | NUR ---
TOOK OVER CARE AT 2300. PT RESTING IN BED REMAINS ON VENT LUNGS COARSE/DIMINISHED. CATALINA DD, SCDS, R RADIAL ART LINE. OG WITH TFEEDING. PRECEDEX AND VERSED INTACT. SOFT WRIST RESTRAINTS. R PRIOR IJ SITE WITH HEMATOMA.
--- NOTE | 2020-02-14 05:01 | NUR ---
RR INCREAED ADJUSTED PRECEDEX AND O2 INCREASED TO 70%.
[2020-02-14 11:22] LABS: ABSOLUTE NEUTROPHILS 5.6 thou/uL (1.4-8.2); BASOPHILS 0.1 % (0.0-2.0); HEMATOCRIT 25.7 % (42.0-52.0); HEMOGLOBIN 8.4 gm/dL (14.0-18.0); LYMPHOCYTES 3.6 % (24.0-44.0); MCH 30.1 pg (26.0-34.0); MCHC 32.9 g/dL (28.0-37.0); MCV 91.6 fL (80.0-100.0); MONOCYTES 6.8 % (1.0-8.0); POLYS 89.5 % (36.0-66.0); RBC 2.81 mil/uL (4.50-6.00); RDW 17.3 % (10.5-14.5); WBC 6.3 thou/uL (4.0-11.0)
[2020-02-14 11:40] LABS: CALCIUM 8.4 mg/dL (8.5-10.1); CREATININE 0.8 mg/dL (0.7-1.3); POTASSIUM 4.9 mmol/L (3.5-5.1)
[2020-02-14 15:04] LABS: PLATELET COUNT 154 thou/uL (150-400)
--- NOTE | 2020-02-14 21:50 | NUR ---
ADALID SAEED, SISTER, INQUIRED REGARDING UPDATE ON PT STATUS. DISCUSSED PT NOT PROGRESSING AT THIS TIME. SEDATED, NON RESPONDING DUE TO NECESSARY SEDATION SINCE ON VENTILATOR. NEED FOR INCREASE IN SEDATION RELATED TO STRUGGLING RESPIRATION AND RESTARTING DILAUDID PAIN MED FOR ADDITIONAL SEDATION.
[2020-02-15] VITALS (24 sets, daily range): BP systolic 126–175; BP diastolic 52–81
[2020-02-15 03:34] LABS: BE(vivo) 0.9 mmol/L (-2 to +3); HCO3 28.5 mmol/L (22.0-26.0); PCO2 64.1 mmHg (35.0-45.0); PO2 78.6 mmHg (80.0-100.0); pH 7.266 (7.360-7.450); sO2 93.5 % (92.0-98.0)
--- NOTE | 2020-02-15 05:06 | NUR ---
Assumed care 1900. pt sedated, on precedex, dilaudid, and versed. No apparent pain. SR to SB on the monitor. 0000 cardizem held due to low heart rate. isolation for covid maintained. Good urine output in the reynolds. Art line maintained. Vitals stable. DIlaudid drip at 2.5 ml/hr after earlier soft pressures. Currently stables pressures. no further concerns. will continue with current poc.
[2020-02-15 06:01] LABS: ABSOLUTE NEUTROPHILS 8.9 thou/uL (1.4-8.2); BASOPHILS 0.2 % (0.0-2.0); HEMATOCRIT 24.2 % (42.0-52.0); HEMOGLOBIN 7.8 gm/dL (14.0-18.0); MCH 30.2 pg (26.0-34.0); MCHC 32.3 g/dL (28.0-37.0); RBC 2.59 mil/uL (4.50-6.00); WBC 9.6 thou/uL (4.0-11.0)
[2020-02-15 06:08] LABS: LYMPHOCYTES 3.2 % (24.0-44.0); MCV 93.3 fL (80.0-100.0); MONOCYTES 4.2 % (1.0-8.0); PLATELET COUNT 140 thou/uL (150-400); POLYS 92.4 % (36.0-66.0); RDW 17.5 % (10.5-14.5)
[2020-02-15 06:23] LABS: CALCIUM 8.2 mg/dL (8.5-10.1); CREATININE 0.9 mg/dL (0.7-1.3); TOTAL BILIRUBIN 0.5 mg/dL (0.2-1.0); TOTAL PROTEIN 5.9 g/dL (6.4-8.2)
[2020-02-15 06:31] LABS: POTASSIUM 5.7 mmol/L (3.5-5.1)
--- NOTE | 2020-02-15 13:13 | NUR ---
ASSUMED CARE OF PT AT 0700, PT IS A [employer] OF 3 AND IS CURRENTLY SEDATED ON PRECEDEX, VERSED AND DILAUDID FOR VENT AND PAIN MANAGEMENT. PT IS ON 70% FIO2. DINAH TF WELL. MINIMAL SECRETIONS OBTAINED. CHANGE OF CARE OF PT TO A DIFFERENT NURSE, REPORT GIVEN TO ACCEPTING NURSE. PUBLIC ADMINSTRATION NOTIFIED OF PATIENT CONDITION.
--- NOTE | 2020-02-15 19:39 | NUR ---
ASSUMED CARE OF PT AT 1300. NO CPAP TODAY.
[2020-02-16] VITALS (24 sets, daily range): BP systolic 118–184; BP diastolic 41–74
[2020-02-16 04:47] LABS: BE(vivo) 6.6 mmol/L (-2 to +3); HCO3 33.6 mmol/L (22.0-26.0); PCO2 63.8 mmHg (35.0-45.0); PO2 62.4 mmHg (80.0-100.0); pH 7.339 (7.360-7.450); sO2 89.8 % (92.0-98.0)
[2020-02-16 05:59] LABS: ABSOLUTE NEUTROPHILS 8.9 thou/uL (1.4-8.2); BASOPHILS 0.1 % (0.0-2.0); HEMATOCRIT 24.4 % (42.0-52.0); HEMOGLOBIN 8.1 gm/dL (14.0-18.0); LYMPHOCYTES 3.2 % (24.0-44.0); MCH 31.1 pg (26.0-34.0); MCHC 33.1 g/dL (28.0-37.0); MCV 94.1 fL (80.0-100.0); MONOCYTES 3.9 % (1.0-8.0); POLYS 92.8 % (36.0-66.0); RBC 2.59 mil/uL (4.50-6.00); RDW 17.8 % (10.5-14.5); WBC 9.6 thou/uL (4.0-11.0)
[2020-02-16 06:24] LABS: CALCIUM 8.5 mg/dL (8.5-10.1); CREATININE 0.8 mg/dL (0.7-1.3); POTASSIUM 5.9 mmol/L (3.5-5.1); TOTAL BILIRUBIN 0.5 mg/dL (0.2-1.0); TOTAL PROTEIN 6.1 g/dL (6.4-8.2)
--- NOTE | 2020-02-16 08:28 | NUR ---
ASSUMED CARE 1900. PT SEDATED. NO APPARENT PAIN. PT DOES NO OPEN EYES OR FOLLOW COMMANDS. SR ON THE MONITOR. GOOD URINE OUTPUT, SEE I&O. THIS MORNING PT UNABLE TO KEEP SATS >90 AND PATIENT WAS HAVING LABORED BREATHING. SEDATION INCREASED AND RT NOTIFIED. WILL CONTINUE WITH POC
[2020-02-16 11:24] LABS: BE(vivo) 6.5 mmol/L (-2 to +3); HCO3 35.4 mmol/L (22.0-26.0); PCO2 80.6 mmHg (35.0-45.0); PO2 72.9 mmHg (80.0-100.0); sO2 91.5 % (92.0-98.0)
[2020-02-16 13:46] LABS: ANISOCYTOSIS 1+; PLATELET COUNT 157 thou/uL (150-400)
--- NOTE | 2020-02-16 17:04 | NUR ---
PT SEDATED ON VENT. VENT SETTINGS HAVE BEEN TITRATED DOWN, PT TOLERATING WELL. ARTERIAL LINE IN PLACE WITH NO HEMATOMA. RIGHT NECK IS FIRM DUE TO HEMATOMA. L IJ IN PLACE, NON REMARKABLE. TOLERATING TUBE FEED AT GOAL. ADEQUATE UOP. AFEBRILE. NO BM. PT IS [place] OF STATE, NO NUMBER TO CALL TO GIVE UPDATE. PT WAS EDUCATED AND UPDATED ON CONDITION AND POC. PT NOT PROGRESSING TOWARDS POC. WILL CONTINUE TO MONITOR.
--- NOTE | 2020-02-16 23:06 | NUR ---
PT REMAINS ON VENT, NOT AROUSABLE. SEDATION IS PRECEDEX, VERSED, DILAUDID. ARNOLD TO DD, SCDS. LUNGS CRACKLES. TFEEDING CONTINUES. SOFT WRIST RESTRAINTS INTACT. ART LINE INTACT.
[2020-02-17] VITALS (24 sets, daily range): BP systolic 122–144; BP diastolic 43–58
[2020-02-17 10:51] LABS: BE(vivo) 3.7 mmol/L (-2 to +3); HCO3 30.5 mmol/L (22.0-26.0); PCO2 57.8 mmHg (35.0-45.0); PO2 58.2 mmHg (80.0-100.0)
[2020-02-17 11:35] LABS: CALCIUM 8.3 mg/dL (8.5-10.1)
[2020-02-17 11:36] LABS: POTASSIUM 5.9 mmol/L (3.5-5.1)
--- NOTE | 2020-02-17 11:42 | NUR ---
ON THE VENT AND SEDATED FOR VENT MANAGEMENT. VITALS STABLE, ON FIO2 AT 100% BUT UNABLE TO MAINTAIN PULSE OX >90%, DR. AGUIRRE NOTIFIED BY HERIBERTO HERNANDEZ. ASSESSMENT COMPLETED. WILL CONTINUE WITH POC. NO FAMILY CALLS YET THIS MORNING.
--- NOTE | 2020-02-17 11:45 | NUR ---
ADVANCED ETT 1 CM TO 28 AT THE LIP PER [facility] ORDER FROM DR AGUIRRE
--- NOTE | 2020-02-17 11:51 | NUR ---
chart review. pt remains intubated, tube feed for nutritional support. noted elevated temp 100.2 and cont with weaning trials. pt from [facility] and has pa. no anticpated dc over the weekend. will cont following as needed for dc needs.
[2020-02-18] VITALS (25 sets, daily range): BP systolic 118–137; BP diastolic 42–57
[2020-02-18 04:33] LABS: BE(vivo) 5.6 mmol/L (-2 to +3); HCO3 31.7 mmol/L (22.0-26.0); PCO2 56.8 mmHg (35.0-45.0); PO2 63.4 mmHg (80.0-100.0); pH 7.365 (7.360-7.450)
[2020-02-18 06:06] LABS: ADENOVIRUS Negative (Negative); INFLUENZA A Negative (Negative); INFLUENZA B Negative (Negative); METAPNEUMOVIRUS Negative (Negative); PARAINFLUENZA 1 Negative (Negative); PARAINFLUENZA 2 Negative (Negative); PARAINFLUENZA 3 Negative (Negative); RHINOVIRUS Negative (Negative); RSV A Negative (Negative); RSV B Negative (Negative)
[2020-02-18 06:32] LABS: BASOPHILS 0.3 % (0.0-2.0); EOSINOPHILS 0.1 % (0.0-3.0); HEMOGLOBIN 6.9 gm/dL (14.0-18.0)
[2020-02-18 06:35] LABS: HEMATOCRIT 21.6 % (42.0-52.0); LYMPHOCYTES 8.4 % (24.0-44.0); MCH 29.8 pg (26.0-34.0); MCHC 31.9 g/dL (28.0-37.0); MCV 93.3 fL (80.0-100.0); MONOCYTES 6.9 % (1.0-8.0); PLATELET COUNT 126 thou/uL (150-400); POLYS 84.3 % (36.0-66.0); RBC 2.32 mil/uL (4.50-6.00); RDW 17.7 % (10.5-14.5); WBC 3.9 thou/uL (4.0-11.0)
[2020-02-18 06:50] LABS: ALBUMIN 1.6 g/dL (3.4-5.0); CREATININE 1.1 mg/dL (0.7-1.3); TOTAL BILIRUBIN 0.6 mg/dL (0.2-1.0); TOTAL PROTEIN 5.9 g/dL (6.4-8.2)
--- NOTE | 2020-02-18 14:26 | NUR ---
ASSUMED CARE AT 0700, ASSESSMENT AND VITAL SIGNS COMPLETED PER ICU PROTOCOL. DR. AGUIRRE ROUNDED THIS AM, PLAN OF CARE DISCUSSED, RN WILL CONTINUE TO MONITOR.
[2020-02-19] VITALS (24 sets, daily range): BP systolic 112–139; BP diastolic 43–52
[2020-02-19 00:11] LABS: HEMATOCRIT 24.8 % (42.0-52.0); HEMOGLOBIN 8.3 gm/dL (14.0-18.0)
[2020-02-19 04:03] LABS: BE(vivo) 4.3 mmol/L (-2 to +3); PO2 63.3 mmHg (80.0-100.0); pH 7.387 (7.360-7.450); sO2 91.7 % (92.0-98.0)
[2020-02-19 06:03] LABS: ABSOLUTE NEUTROPHILS 3.9 thou/uL (1.4-8.2); BASOPHILS 0.3 % (0.0-2.0); EOSINOPHILS 0.1 % (0.0-3.0); HEMATOCRIT 24.9 % (42.0-52.0); HEMOGLOBIN 8.2 gm/dL (14.0-18.0); LYMPHOCYTES 7.8 % (24.0-44.0); MCH 30.3 pg (26.0-34.0); MONOCYTES 5.7 % (1.0-8.0); PLATELET COUNT 123 thou/uL (150-400); POLYS 86.1 % (36.0-66.0); RBC 2.71 mil/uL (4.50-6.00); RDW 16.8 % (10.5-14.5); WBC 4.9 thou/uL (4.0-11.0)
[2020-02-19 06:36] LABS: CALCIUM 8.1 mg/dL (8.5-10.1); CREATININE 0.9 mg/dL (0.7-1.3); TOTAL BILIRUBIN 0.8 mg/dL (0.2-1.0); TOTAL PROTEIN 6.3 g/dL (6.4-8.2)
[2020-02-19 06:42] LABS: POTASSIUM 4.4 mmol/L (3.5-5.1)
[2020-02-20] VITALS (22 sets, daily range): BP systolic 114–144; BP diastolic 46–59
[2020-02-20 04:38] LABS: BE(vivo) 4.7 mmol/L (-2 to +3); HCO3 29.1 mmol/L (22.0-26.0); PCO2 43.1 mmHg (35.0-45.0); PO2 52.9 mmHg (80.0-100.0); pH 7.448 (7.360-7.450); sO2 88.7 % (92.0-98.0)
[2020-02-20 05:46] LABS: ABSOLUTE NEUTROPHILS 7.7 thou/uL (1.4-8.2); BASOPHILS 0.1 % (0.0-2.0); EOSINOPHILS 0.1 % (0.0-3.0); HEMATOCRIT 25.5 % (42.0-52.0); HEMOGLOBIN 8.5 gm/dL (14.0-18.0); MCH 30.5 pg (26.0-34.0); MCHC 33.3 g/dL (28.0-37.0); MCV 91.5 fL (80.0-100.0); MONOCYTES 3.6 % (1.0-8.0); PLATELET COUNT 125 thou/uL (150-400); POLYS 92.2 % (36.0-66.0); RBC 2.78 mil/uL (4.50-6.00); RDW 17.3 % (10.5-14.5); WBC 8.4 thou/uL (4.0-11.0)
[2020-02-20 06:01] LABS: ALBUMIN 1.8 g/dL (3.4-5.0); CALCIUM 8.2 mg/dL (8.5-10.1); CREATININE 0.8 mg/dL (0.7-1.3); PHOSPHORUS 4.1 mg/dL (2.5-4.9); POTASSIUM 4.7 mmol/L (3.5-5.1); TOTAL BILIRUBIN 0.8 mg/dL (0.2-1.0); TOTAL PROTEIN 6.1 g/dL (6.4-8.2)
--- NOTE | 2020-02-20 09:27 | HC ---
[facility] [place] [address] CONSULTATION Name: PAT ROMERO Room #: 239-P [facility] IN M.R.#: [id number] Admission: 02/05/20 Attend Phys: Leonel Rincon MD Discharge: Date of : 70 Report #: [id number] THIS REPORT FOR: cc: Minh Zhou,Chrystal Wang MD ~ CC: Minh Rincon DATE OF SERVICE: 02/19/2020 CONSULTING PHYSICIAN: Dr. Pedraza. REASON FOR CONSULTATION: Uncontrolled type 2 diabetes mellitus. HISTORY OF PRESENT ILLNESS: This is a 49-year-old male patient whose medical background is significant for multiple issues including type 2 diabetes mellitus, hyperlipidemia, congestive heart failure, bipolar disorder, and asthma. The patient lives at a long-term care facility where he had tested positive for COVID-19 prior to his presentation to the hospital. He presented on 02/05/2020 with worsening shortness of breath and chest discomfort. Later on, he developed respiratory failure and was intubated, which he remains. Again, the patient is known to have type 2 diabetes mellitus and his records show that he is maintained on Lantus insulin 18 units twice a day in addition to an unidentified amount of NovoLog insulin. There is no documentation of his blood glucose profile prior to admission. There is no notation of issues pertaining to diabetic retinopathy, but the patient is known to have chronic kidney disease. Also, the patient has a history of hypothyroidism and has been maintained on levothyroxine 150 mcg daily. He is known to have hyperlipidemia and is maintained on atorvastatin 40 mg daily. REVIEW OF SYSTEMS: Could not be obtained at this point in time due to active mechanical ventilation and sedation. PAST MEDICAL HISTORY: 1. Type 2 diabetes mellitus. 2. Hyperlipidemia. 3. Congestive heart failure. 4. Hypothyroidism. 5. Bipolar disorder. 6. History of asthma. [facility] [address] [place] [address] CONSULTATION Name: PAT ROMERO Room #: 239-P [facility] IN ..#: [id number] Admission: 02/05/20 Attend Phys: Leonel Rincon MD Discharge: Date of : 70 Report #: [id number] 7. Bronchitis. 8. History of seizure activity. 9. History of anxiety. 10. GERD. OUTPATIENT MEDICATIONS: Includes, 1. Depakote DR 500 mg at bedtime. 2. Depakote 250 at bedtime. 3. NovoLog insulin. 4. Trazodone 25 mg t.i.d. 5. Aspirin 81 mg daily. 6. Atorvastatin 40 mg daily. 7. Olanzapine 20 mg at bedtime. 8. Ambien 5 mg at bedtime. 9. Levothyroxine 150 mcg daily. 10. Lantus insulin 18 units b.i.d. ALLERGIES: ACETAMINOPHEN, EGGS, TOMATO AND TRAMADOL. FAMILY HISTORY: Noncontributory. SOCIAL HISTORY: The patient is not documented as having been actively using tobacco or alcohol at the time of presentation. PHYSICAL EXAMINATION: GENERAL: The patient is mechanically ventilated, intubated, sedated. VITAL SIGNS: Blood pressure is 110/43 mmHg, heart rate is 56 beats per minute, respirations 24 per minute, temperature 36.8 degrees Celsius. CONSTITUTIONAL: Lying supine in bed, sedated. HEENT: Anicteric sclerae. NECK: Supple, no thyromegaly. CHEST: Noted for limited air entry bilaterally with scattered rales, but no crackles. HEART: Regular rate and rhythm without murmurs or gallops. ABDOMEN: Soft, lax. No guarding. Sluggish bowel sounds. EXTREMITIES: Lower extremity exam, trace ankle edema. No skin breaks or ulcerations. NEUROLOGIC: Sedated, not interactive, no spontaneous movement. PSYCHIATRIC: Sedated, not interactive. LABORATORY RESULTS: Glucose had been as high as 412 about 24 hours ago and has since declined progressively to low of 145 prior to this dictation. Sodium 133, potassium 4.4, chloride 105, CO2 of 32, anion gap 6, BUN 52, creatinine 0.9, AST 68, total bilirubin 0.8, direct bilirubin 0.1, calcium 8.1, alkaline phosphatase 7.3, ALT 120, total protein 6.3, albumin 2.0. EGFR 90. Lactic acid 2.7. BNP 1020. INR 1.0. White blood count 4.9, hemoglobin 8.2, hematocrit 24.9, [address] [address] CONSULTATION Name: PAT ROMERO Room #: 239-P [facility] IN M.R.#: [id number] Admission: 02/05/20 Attend Phys: Leonel Rincon MD Discharge: Date of : 70 Report #: [id number] platelets 123. TSH is 3.86. He is COVID positive on 02/05. ASSESSMENT AND PLAN: 1. Type 2 diabetes mellitus. As noted above, the patient has baseline issues with type 2 diabetes mellitus and is maintained for the most part on glargine 18 units b.i.d. During this hospital stay, the patient has needed progressively larger doses of insulin due to his acute, severe intercurrent illness as well as the need to use high-dose IV steroid therapy in the form of methylprednisolone 40 mg b.i.d. The patient is currently placed on a dose of Lantus at 65 units b.i.d. in addition to Humalog supplemental scale, high intensity. Of note is that his blood glucose values have declined sharply over less than 24 hours, which certainly can provoke a concern over the possibility of hypoglycemia in the hours to come. I would like to obtain a hemoglobin A1c to have a better assessment of his more recent level of control prior to admission. I would also like to significantly reduce his Lantus insulin intake to 25 units b.i.d. as well as reduced intensity of his Humalog supplemental scale to low intensity. Our ICU blood glucose goal target is that of 140-180 mg/dL and it would be prudent to continue to be able to avoid hypoglycemia through this hospital stay. Blood glucose monitoring will commence a.c. and at bedtime. 2. Hypothyroidism. The patient is known to have hypothyroidism and is maintained on levothyroxine 150 mcg daily. He is to continue with the same. 3. Respiratory failure. The patient has pneumonia and respiratory failure in the setting of positive COVID-19 infection. He is currently being medicated with high dose IV steroid therapy in the form of methylprednisolone 40 mg b.i.d. and is in need of mechanical ventilation for support. He is receiving bronchodilator therapy and has already finished treatment with remdesivir under the supervision of the Pulmonary Service. 4. Hyperlipidemia. The patient is known to have hyperlipidemia and is maintained on atorvastatin therapy. This will be considered following the stabilization of his clinical outlook. I have reviewed the patient's clinical care notes, laboratory data, radiology data, and other pertinent clinical information for over 35 minutes in addition to my encounter time with the patient. I certainly appreciate this consultation by Dr. Brody. <ELECTRONICALLY SIGNED> By: Chrystal Bowie MD 02/20/20 [id number] [id number] Chrystal Bowie MD /nt
--- NOTE | 2020-02-20 10:54 | NUR ---
SPOKE WITH IT TRAINING SPECIALIST FROM [facility] CONCERNING COMFORT CARE MEASURES IF THE FAMILY WANTS TO PROCEED PATIENT REMAINS ON HIGH DOSES OF SEDATION AND UNABLE TO WEAN O2 OR PEEP DOWN FOR SEVERAL DAYS. DR LUCAS HAD SPOKE WITH HER EARLIER.
--- NOTE | 2020-02-20 15:20 | NUR ---
chart review. updates to be sent to [facility]. pt remains on vent, with tube feed for nutritional support. will cont following as needed for dc needs.
--- NOTE | 2020-02-20 20:23 | NUR ---
Patient not progressing towards outcome goals as O2 sat remains in the mid to upper 80's with FiO2 at 100% and PEEP at 16 cm. Breathe sounds clear to occ rhonchi in the upper lobes and diminished in the bases. Monitor SB to SR. VSS. Rare hypoactive bowel sound noted. 400 ml of ogt drainage noted , tube feedings held. Urine output greater than 45ml/hr today. Remains sedated on the vent
[2020-02-21] VITALS (21 sets, daily range): BP systolic 114–179; BP diastolic 50–80
[2020-02-21 01:11] LABS: GLYCOHEMOGLOBIN (HGB A1C) 9.7 % (4.8-5.6)
[2020-02-21 05:53] LABS: BASOPHILS 0.3 % (0.0-2.0); EOSINOPHILS 0.1 % (0.0-3.0); HEMATOCRIT 26.5 % (42.0-52.0); HEMOGLOBIN 8.7 gm/dL (14.0-18.0); LYMPHOCYTES 3.8 % (24.0-44.0); MCH 30.3 pg (26.0-34.0); MCHC 32.8 g/dL (28.0-37.0); MCV 92.6 fL (80.0-100.0); MONOCYTES 2.8 % (1.0-8.0); PLATELET COUNT 122 thou/uL (150-400); RBC 2.86 mil/uL (4.50-6.00); RDW 17.9 % (10.5-14.5); WBC 9.7 thou/uL (4.0-11.0)
[2020-02-21 06:31] LABS: ALBUMIN 1.7 g/dL (3.4-5.0); CALCIUM 8.1 mg/dL (8.5-10.1); CREATININE 0.8 mg/dL (0.7-1.3); TOTAL BILIRUBIN 0.9 mg/dL (0.2-1.0); TOTAL PROTEIN 6.1 g/dL (6.4-8.2)
--- NOTE | 2020-02-21 13:22 | NUR ---
FAXED CLINICAL UPDATE TO [facility] RECEIVED CONFIRMATION AND LEFT MSG WITH ADM. FAXED CLINICAL UPDATE TO PT[facility]S GUARDIAN ([facility]) AT [facility] RECEIVED CONFIRMATION. DP TO FOLLOW.
--- NOTE | 2020-02-21 20:10 | NUR ---
PATIENT REMAINS UNRESPONSIVE AND SEDATION TURNED DOWN. O2 SAT UPPER 70'S TO LOWER 80'S, DR LUCAS AND DR VALENTINO AWARE DURING ROUNDING ON PATIENT. URINE OUTPUT AVERAGING 50 TO 60 ML/HR. PATIENT IS AFEBRILE. PATIENT IS NOT PROGRESSING TOWARDS OUTCOME GOALS.
[2020-02-22 11:41] VITALS: BP 160/60
--- NOTE | 2020-02-22 12:32 | NUR ---
0900-PT. UNRESONSIVE TO STIMULI OF ANY KIND. O2 SATURATIONS 70% ON 100% OXYGEN AND 16 OF PEEP. CHANGED HIS POSITIONING WIHT THE BED FOR COMFORT OF PT AND TO GET OFF HIS COCCYX AREA MUCH POSSIBLE. WILL DISCUSS COMFORT CARE PLAN WITH [id number] WHEN HE ROUNDS THIS AM.
--- NOTE | 2020-02-22 12:34 | NUR ---
DR. VALENTINO-ORDERED A MORPHINE GTT AND COMFORT CARE TODAY, EXTUBATE ONCE HE IS COMFORTABLE AND TITRATE GTT NEEDED FOR COMFORT.
--- NOTE | 2020-02-22 14:17 | NUR ---
[facility] ADMINISTRATOR CALLED FOR AN UPDATE ON PT.S STATUS. EXPLAINED TO HER THAT DR VALENTINO HAD ORDERED A MORPHINE GTT AND TITRATION FOR COMFORT CARE AND EXTUBATION WHEN SUCH OBTAINED TODAY. SHE TOLD ME SHE WOULD SHARE THIS WITH THE FAMILY MEMBER-SISTER WHO WAS REACHING OUT TO HER FOR AN UPDATE WELL. SHE STATED THAT SHE WAS SURE THIS WAS THE NEXT LEVEL OF CARE THAT WAS COMING FOR HIS OVERALL CARE AND WOULD LIKE US TO CALL HER WHEN WE EXTUBATE THE PATIENT.
--- NOTE | 2020-02-22 17:15 | NUR ---
PT. REMOVED FROM ENDOTRACHEAL BREATHING SYSTEM AT 16:50PM. MORPHINE GTT INFUSING AT 15 ML/HR AT THIS TIME, NO SIGNS OF DISCOMFORT OBSERVED, AGONAL BREATHING NOTED, OXYGEN SATURATIONS 20%. SINUS DEBO DOWN TO 40 VERY QUICKLY.BLUE LIP AREA.
--- NOTE | 2020-02-22 17:17 | NUR ---
PT. ASYSTOLE, WILL CALL TIME OF HERE SHORTLY WITH OTHER NURSE AT BEDSIDE SHORTLY.
--- NOTE | 2020-02-22 18:14 | NUR ---
17:31- PRONOUNCED AT THIS TIME, TWO RN'S PRESENT. ARNOLD REMOVED, ART LINE REMOVED. LFET IN MIDLINE IN LEFT ARM FOR HOME ACCESS FOR EMBALMING POSSIBILITY. EYES CLOSED AND PEACEFUL LOOKING.
--- NOTE | 2020-02-22 18:42 | NUR ---
CALLED IN REPORT TO [facility] , REFERAL NUMBER [email or web address] FOR CASE THEY WILL NOT PROCEED FURTHER WITH THE PT. DUE TO COVID STATUS.
--- NOTE | 2020-02-23 09:48 | NUR ---
cm notified [facility] office choco and also vanessa waite
== END 2020-02-22 17:31 | DRG 870 ==
LOC: ER 14:21 → EROBS 17:42 → 3W 17:42 → ICU 02-08 17:34
PROVIDERS: Hospitalist; Internal Medicine; Nurse Practitioner Family; Pediatrics; Specialist; ADMIT Internal Medicine; ATTEND Internal Medicine
DX: A41.89 Other specified sepsis (principal); U07.1 COVID-19; J12.89 Other viral pneumonia; J96.01 Acute respiratory failure with hypoxia; R65.21 Severe sepsis with septic shock; E43 Unspecified severe protein-calorie malnutrition; L97.811 Non-pressure chronic ulcer of other part of right lower leg limited to breakdown of skin; L03.115 Cellulitis of right lower limb; D62 Acute posthemorrhagic anemia; E87.0 Hyperosmolality and hypernatremia; Z68.43 Body mass index [BMI] 50.0-59.9, adult; E11.9 Type 2 diabetes mellitus without complications; K21.9 Gastro-esophageal reflux disease without esophagitis; J45.909 Unspecified asthma, uncomplicated; F31.9 Bipolar disorder, unspecified; I50.9 Heart failure, unspecified; F41.9 Anxiety disorder, unspecified; E78.00 Pure hypercholesterolemia, unspecified; E87.6 Hypokalemia; E03.9 Hypothyroidism, unspecified; E78.5 Hyperlipidemia, unspecified; L89.626 Pressure-induced deep tissue damage of left heel; L89.616 Pressure-induced deep tissue damage of right heel; K75.9 Inflammatory liver disease, unspecified; R74.0 Nonspecific elevation of levels of transaminase and lactic acid dehydrogenase [LDH]; D69.6 Thrombocytopenia, unspecified; D64.89 Other specified anemias; S10.93XA Contusion of unspecified part of neck, initial encounter; B95.62 Methicillin resistant Staphylococcus aureus infection as the cause of diseases classified elsewhere; I95.9 Hypotension, unspecified; I48.0 Paroxysmal atrial fibrillation; J22 Unspecified acute lower respiratory infection; E87.5 Hyperkalemia; Z66 Do not resuscitate; I11.0 Hypertensive heart disease with heart failure; E87.8 Other disorders of electrolyte and fluid balance, not elsewhere classified; Z87.820 Personal history of traumatic brain injury; Z88.8 Allergy status to other drugs, medicaments and biological substances; Z91.012 Allergy to eggs; Z91.02 Food additives allergy status
CPT/HCPCS: 10078; 10879; 27000